=== PATIENT | male | born 1970 | race Caucasian/White ===

== ENCOUNTER 2016-09-13 06:47 | Observation (INO) | payer BC ==
[~2016-09-13] VITALS: Ht 175.3 cm; Wt 83.9 kg
--- NOTE | ~2016-09-13 | EKG ---
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 : 1970 Requested By: Dayron Zuniga Order Number: [id number] MD: Nahid Kennedy Measurements Intervals [place] Rate: 74 P: 7 SD: 129 QRS: -4 QRSD: 108 T: 107 QT: 409 QTc: 454 Interpretive Statements Sinus rhythm Abnormal R-wave progression, early transition Nonspecific T abnormalities, lateral leads Baseline wander in lead(s) V3,V4,V5 No previous ECG available for comparison Electronically Signed On 09-14-2016 22:49:56 CDT by Nahid Kennedy [email or web address] <ELECTRONICALLY SIGNED> By: Nahid Kennedy MD 09/14/16 [id number] Nahid Kennedy MD /EPI
[~2016-09-13 06:47] MED LIST: ASPIRIN325 PO; DILAUDID 2 MG TA2 MG PO; GLUCOPHAGE1000 MG PO; HUMALOG100 UNIT/2 SQ; LANTUS100 UNIT/M SUBQ; LIPITOR 20 MG T20 M1 PO; LISINOPRIL10 MG PO; PERCOCET 10-321 EACH PO; XANAX 0.5 MG0.5 MG PO; ZOLOFT100 MG PO
[2016-09-13 09:36] VITALS: BP 119/82
[2016-09-13 21:00] VITALS: BP 122/75
[2016-09-14 05:00] VITALS: BP 110/64
[2016-09-14 06:00] LABS: HEMATOCRIT 37.7 % (42.0-52.0); HEMOGLOBIN 12.7 gm/dL (14.0-18.0); MCH 29.9 pg (26.0-34.0); MCHC 33.7 g/dL (28.0-37.0); MCV 88.7 fL (80.0-100.0); PLATELET COUNT 357 thou/uL (150-400); RBC 4.25 mil/uL (4.50-6.00); RDW 13.7 % (10.5-14.5); WBC 21.6 thou/uL (4.0-11.0)
[2016-09-14 06:08] LABS: MANUAL DIFF YES
[2016-09-14 06:25] LABS: CALCIUM 8.5 mg/dL (8.5-10.1); MAGNESIUM 1.8 mg/dL (1.8-2.4); POTASSIUM 4.8 mmol/L (3.5-5.1)
[2016-09-14 06:54] VITALS: BP 105/68
[2016-09-14 08:57] LABS: ABSOLUTE NEUTROPHILS 18.1 thou/uL (1.4-8.2); TOTAL CELL COUNT 100
[2016-09-14 09:45] VITALS: BP 105/68
== END 2016-09-14 10:08 | disposition home health service (06) ==
LOC: OR 06:47 → TBA 06:50 → OR 13:53 → 3N 13:53 → OR 14:07 → 3N 09-14 10:08
PROVIDERS: Orthopaedic Surgery Foot and Ankle Surgery
DX: S92.321D Displaced fracture of second metatarsal bone, right foot, subsequent encounter for fracture with routine healing (principal); S92.331D Displaced fracture of third metatarsal bone, right foot, subsequent encounter for fracture with routine healing; S93.324D Dislocation of tarsometatarsal joint of right foot, subsequent encounter; I25.10 Atherosclerotic heart disease of native coronary artery without angina pectoris; I10 Essential (primary) hypertension; E78.5 Hyperlipidemia, unspecified; F41.9 Anxiety disorder, unspecified; F32.9 Major depressive disorder, single episode, unspecified; E11.9 Type 2 diabetes mellitus without complications; Z95.5 Presence of coronary angioplasty implant and graft
CPT/HCPCS: 23017; 23029; 23031; 50010; 50101; 50386; 51122; 51277; 55430; 56524; 56525; 56526; 56527; 56528; 57091; 62110; 62900; 64037; 70005

== ENCOUNTER → 2016-10-15 | Outpatient (CLI) | payer BC ==
[~2016-10-15] MED LIST changes: +BACTRIM DS TAB1 EACH PO; +LEVAQUIN 750 M750 MG PO
[2016-10-15 15:10] LABS: HEMATOCRIT 33.4 % (42.0-52.0); MCH 29.1 pg (26.0-34.0); MCV 88.1 fL (80.0-100.0); RBC 3.79 mil/uL (4.50-6.00); RDW 14.9 % (10.5-14.5); WBC 11.4 thou/uL (4.0-11.0)
[2016-10-15 15:25] LABS: ALBUMIN 2.9 g/dL (3.4-5.0); CALCIUM 8.6 mg/dL (8.5-10.1); POTASSIUM 4.2 mmol/L (3.5-5.1); TOTAL BILIRUBIN 0.1 mg/dL (<0.1-1.0); TOTAL PROTEIN 7.8 g/dL (6.4-8.2)
[2016-10-15 18:13] VITALS: BP 117/69
== END ==
LOC: OPONC 10:03
PROVIDERS: Specialist
DX: A49.01 Methicillin susceptible Staphylococcus aureus infection, unspecified site (principal)
CPT/HCPCS: 27000; 95000